=== PATIENT | female | born 1965 | race Caucasian/White ===

== ENCOUNTER 2017-09-10 17:41 | Inpatient (IN) ==
[2017-09-10] MEDS ORDERED: HYDROmorphone 2 MG/1 ML VIAL IV STA (19:14)
[2017-09-10] MEDS ORDERED: HYDROmorphone 2 MG/1 ML VIAL ONE (19:16)
[2017-09-10] MEDS ORDERED: ONDANSETRON 4 MG/2 ML VIAL IV PRN (21:31)
[2017-09-10] MEDS: cefOXitin 2,000 MG in SYRINGE 1 EACH IV SCH (22:26)
[2017-09-10] MEDS: LACTATED RINGERS 1,000 ML IV SCH (22:26)
[2017-09-11] MEDS: HYDROmorphone 2 MG/1 ML VIAL IV PRN ×3 (01:04→14:25)
[2017-09-11] MEDS: cefOXitin 2,000 MG in SYRINGE 1 EACH IV SCH ×3 (05:53→21:48)
[2017-09-11] MEDS: LACTATED RINGERS 1,000 ML IV SCH ×4 (06:06→18:42)
[2017-09-11 06:19] LABS: Basophils % 0.2 % (0.0-0.8); Eosinophils % 0.1 % (0.00-10.9); Hematocrit 34.3 VOL% (35.7-47.0); Hemoglobin 11.1 GM/DL (12.0-16.0); Immature Granulocytes % 0.7 %; Immature Granulocytes Absolute 0.12 #; Lymphocytes # 2.3 10*3/uL (1.4-4.0); Lymphocytes % 13.1 % (21.3-54.2); Mean Corpuscular HGB Conc 32.4 GM/DL (32-36); Mean Corpuscular Hemoglobin 30 PG (27-34); Mean Corpuscular Volume 93.7 FL (87-102); Mean Platelet Volume 12.2 FL (9.6-12.0); Monocytes # 0.9 10*3/uL (0.11-0.8); Neutrophils # 14.1 10*3/uL (1.4-7.4); Neutrophils % 80.9 % (38.7-73.9); Platelet Count 213 T/CUMM (130-400); Red Blood Count 3.66 MC/CUMM (3.8-5.5); Red Cell Distribution Width 12.7 % (9.3-17.3); White Blood Count 17.4 T/CUMM (4-12)
[2017-09-11 06:49] LABS: Giant Platelets Few; Hypochromasia 1+; Platelet Estimate Adequate
[2017-09-11 06:50] LABS: Microcytosis Slight
[2017-09-11 07:02] LABS: Albumin 3.1 G/DL (3.4-5.0); Bilirubin,Total 1.8 MG/DL (0.2-1.0); Calcium 8.3 MG/DL (8.5-10.1); Osmolality,Calculated 271.7 MOS/KG (273-304); Potassium 3.9 MMOL/L (3.5-5.1); Total Protein 5.8 G/DL (6.4-8.3)
[2017-09-11] MEDS ORDERED: LIDOCAINE 2%/EPI 20 ML VIAL ONE (08:05)
[2017-09-11] MEDS ORDERED: SCOPOLAMINE 1.5 MG PATCH TRANSDERM ONE (08:34)
[2017-09-11] MEDS ORDERED: ROCURONIUM 100 MG/10 ML VIAL IV ONE (09:53)
[2017-09-11] MEDS ORDERED: MIDAZOLAM 2 MG/2 ML VIAL ONE (09:53)
[2017-09-11] MEDS ORDERED: fentaNYL 100 MCG/2 ML VIAL ONE (09:53)
[2017-09-11] MEDS ORDERED: PROPOFOL 200 MG/20 ML VIAL IV ONE (09:53)
[2017-09-11] MEDS ORDERED: GLYCOPYRROLATE 0.4 MG/2 ML VIAL ONE (09:54)
[2017-09-11] MEDS ORDERED: ONDANSETRON 4 MG/2 ML VIAL ONE (09:54)
[2017-09-11] MEDS ORDERED: DEXAMETHASONE 10 MG/1 ML VIAL ONE (09:54)
[2017-09-11] MEDS ORDERED: NEOSTIGMINE 10 MG/10 ML VIAL ONE (09:55)
[2017-09-11] MEDS ORDERED: KETOROLAC 30 MG/1 ML VIAL ONE (09:55)
[2017-09-11] MEDS ORDERED: SEVOFLURANE 1 UNIT/15 MINUTE INH ONE (09:56)
[2017-09-11] MEDS: DOCUSATE SODIUM 100 MG CAPSULE PO SCH (20:03)
[2017-09-12] MEDS: LACTATED RINGERS 1,000 ML IV SCH ×2 (00:43→07:47)
[2017-09-12 05:16] LABS: Basophils % 0.1 % (0.0-0.8); Hematocrit 31.4 VOL% (35.7-47.0); Hemoglobin 10.4 GM/DL (12.0-16.0); Immature Granulocytes % 0.6 %; Immature Granulocytes Absolute 0.08 #; Lymphocytes % 7.7 % (21.3-54.2); Mean Corpuscular HGB Conc 33.1 GM/DL (32-36); Mean Corpuscular Hemoglobin 31 PG (27-34); Mean Corpuscular Volume 92.4 FL (87-102); Mean Platelet Volume 12.4 FL (9.6-12.0); Monocytes # 0.6 10*3/uL (0.11-0.8); Monocytes % 4.3 % (1.7-12.7); Neutrophils # 11.3 10*3/uL (1.4-7.4); Neutrophils % 87.3 % (38.7-73.9); Platelet Count 199 T/CUMM (130-400); Red Cell Distribution Width 12.7 % (9.3-17.3); White Blood Count 12.9 T/CUMM (4-12)
[2017-09-12] MEDS: cefOXitin 2,000 MG in SYRINGE 1 EACH IV SCH (05:54)
[2017-09-12 06:16] LABS: Band Neutrophils 1 % (0-10); Giant Platelets Few; Hypochromasia 1+; Lymphocytes 5 % (20-55); Microcytosis Slight; Platelet Estimate Adequate; Segmented Neutrophils 92 % (50-85); Total Cells Counted 100
[2017-09-12 07:46] VITALS: BP 138/99
[2017-09-12] MEDS: DOCUSATE SODIUM 100 MG CAPSULE PO SCH (09:21)
== END 2017-09-12 10:00 | disposition home or self-care (01) | DRG 343 ==
LOC: N.ED 17:41 → N.EDINP 18:19 → N.3E 20:16
PROVIDERS: ADMIT Surgery; ATTEND Surgery